=== PATIENT | female | born 1995 | race Caucasian/White ===

== ENCOUNTER → 2024-03-01 15:36 | Outpatient (REF) | payer OTHER, SELFPAY | LOC: PNTC 15:36 | PROVIDERS: ATTENDING PHYSICIAN Obstetrics & Gynecology | DX: Z36.0 Encounter for antenatal screening for chromosomal anomalies (principal); Z36.82 Encounter for antenatal screening for nuchal translucency | CPT/HCPCS: 36415; 76801; 76813 ==

== ENCOUNTER 2024-09-10 11:32 | Inpatient (IN) | payer OTHER, SELFPAY ==
[2024-09-10 10:19] VITALS: BMI 29.0
[2024-09-10 10:30] VITALS: BP 122/69
[2024-09-10 12:08] VITALS: BP 122/69; BMI 29.0
[2024-09-10] MEDS: LR 1000 IV ×2 (12:32→16:40)
[2024-09-10] MEDS: PENICILLIN 110 UNITS IV (12:32)
[2024-09-10 12:44] LABS: % Basophils 0.2 % (0-2); % Eosinophils 0.4 % (0-6); % Immature Granulocytes 0.8 % (0-0.5); % Lymphocytes 16.7 % (20.5-51.1); % Monocytes 8.8 % (1.7-9.3); % Neutrophils 73.1 % (42.2-75.2); Absolute Eosinophils 0.1 10^3/uL (0-0.7); Absolute Immature Granulocytes 0.1 10^3/uL (0-0.05); Absolute Lymphocytes 2.4 10^3/uL (1.2-3.4); Absolute Monocytes 1.2 10^3/uL (0.1-0.6); Absolute Neutrophils 10.3 10^3/uL (1.4-6.5); Hematocrit 37.5 % (37.0-47.0); Hemoglobin 13.3 g/dL (12.0-16.0); Mean Corp Hgb Conc. 35.5 g/dL (33.0-37.0); Mean Corpuscular Hgb 30.7 pg (27.0-31.0); Mean Corpuscular Volume 86.6 fL (81.0-99.0); Mean Platelet Volume 10.6 fL (7.4-10.4); Nucleated Red Blood Cells % 0 %; Platelet Count 214 10^3/uL (130-400); Red Blood Cell Count 4.33 10^6/uL (4.20-5.40); Red Cell Dist. Width 13.2 % (11.5-14.5); White Blood Cell Count 14.2 10^3/uL (4.8-10.8)
[2024-09-10] MEDS: PITOCIN 30 UNITS/NSS 500 ML IV ×2 (14:00→22:00)
[2024-09-10] MEDS: PENICILLIN 55 UNITS IV ×2 (16:40→20:51)
[2024-09-10] MEDS: SUBLIMAZE 100 MCG EPIDURAL (18:30)
[2024-09-10] MEDS: FENTANYL/BUPIVACAINE 100 EPIDURAL (18:31)
[2024-09-11 05:56] LABS: Hemoglobin 12.7 g/dL (12.0-16.0)
[2024-09-11] MEDS: TYLENOL 650 MG PO ×3 (09:07→19:33)
[2024-09-11] MEDS: MOTRIN 600 MG PO (15:17)
[2024-09-12] MEDS: TYLENOL 650 MG PO (03:10)
[2024-09-12] MEDS: MOTRIN 600 MG PO (03:10)
[2024-09-13 16:26] LABS: Syphilis/T. pallidum Ab Reflex Negative (Negative)
== END 2024-09-12 11:35 | disposition home or self-care (01) | DRG 807 ==
LOC: LDRP 11:32
PROVIDERS: ADMITTING PHYSICIAN Obstetrics & Gynecology
PROC: 4A1HXCZ Monitoring of Products of Conception, Cardiac Rate, External Approach (ICD-10-PCS; 2024-09-10)
PROC: 0UQMXZZ Repair Vulva, External Approach (ICD-10-PCS; 2024-09-10)
PROC: 10E0XZZ Delivery of Products of Conception, External Approach (ICD-10-PCS; 2024-09-10)
DX: O99.824 Streptococcus B carrier state complicating childbirth (principal); Z37.0 Single live birth; O71.82 Other specified trauma to perineum and vulva; Z3A.39 39 weeks gestation of pregnancy; Z87.891 Personal history of nicotine dependence
CPT/HCPCS: 36415; 85014; 85018; 85025; 86780; 86850; 86900; 86901; 99406